=== PATIENT | male | born 1965 | race African-American/Black ===

== ENCOUNTER → 2016-04-23 | Outpatient (CLI) | payer OTHER ==
[~2016-04-23] VITALS: Ht 170.2 cm; Wt 64.9 kg
[~2016-04-23] MED LIST: GABA-279 PO; LIDOCAINE 2% INJ 100 MG/5 ML SDV (FOR ANES.) As Ordered ONE; MELO15TA4 PO; MULT1TAB10 PO; PROPOFOL 200 MG/20 ML VIAL As Ordered ONE
--- NOTE | 2016-04-23 12:55 | ROOR ---
Patient Name: Hernan Green Procedure Date: 04/23/2016 12:38 PM Date of : 1965 Age: 50 Room: [facility] Gender: Male Note Status: Finalized Procedure: Colonoscopy Indications: Screening for colorectal malignant neoplasm Providers: Harinder CASTANEDA MD Referring MD: CLAIR Benoit DO Requesting Provider: Medicines: Monitored Anesthesia Care Complications: No immediate complications. Procedure: Pre-Anesthesia Assessment: - The heart rate, respiratory rate, oxygen saturations, blood pressure, adequacy of pulmonary ventilation, and response to care were monitored throughout the procedure. The Colonoscope was introduced through the anus and advanced to the cecum, identified by appendiceal orifice and ileocecal valve. The colonoscopy was performed without difficulty. The patient tolerated the procedure well. The quality of the bowel preparation was good. Findings: The perianal and digital rectal examinations were normal. (Exam: Complete, Prep: Good or Excellent.) A few medium-mouthed diverticula were found in the sigmoid colon. The entire examined colon appeared normal on direct and retroflexion views. Impression: - (Exam: Complete, Prep: Good or Excellent.) - Mild diverticulosis in the sigmoid colon. - The entire examined colon is normal on direct and retroflexion views. - No specimens collected. Recommendation: - Repeat colonoscopy in 10 years for screening purposes. Harinder Castaneda MD Harinder CASTANEDA MD 04/23/2016 12:54:51 PM This report has been signed electronically. Number of Addenda: 0 Note Initiated On: 04/23/2016 12:38 PM Estimated Blood Loss: Estimated blood loss: none.
[2016-04-23 12:56] VITALS: BP 114/78
== END | disposition home or self-care (01) ==
LOC: M OPP 11:15
PROVIDERS: ATTEND Internal Medicine Gastroenterology
DX: Z12.11 Encounter for screening for malignant neoplasm of colon (principal); K57.30 Diverticulosis of large intestine without perforation or abscess without bleeding; G89.4 Chronic pain syndrome; M54.9 Dorsalgia, unspecified; M51.26 Other intervertebral disc displacement, lumbar region; F17.200 Nicotine dependence, unspecified, uncomplicated; F17.228 Nicotine dependence, chewing tobacco, with other nicotine-induced disorders; Z79.899 Other long term (current) drug therapy

== ENCOUNTER 2016-07-24 14:14 | Outpatient (RCR) | payer OTHER ==
[~2016-07-24 14:14] MED LIST changes: -LIDOCAINE 2% INJ 100 MG/5 ML SDV (FOR ANES.) As Ordered ONE; -PROPOFOL 200 MG/20 ML VIAL As Ordered ONE
== END 2016-07-28 ==
LOC: M PT 14:14
PROVIDERS: ATTEND Physician Assistant
DX: M51.36 Other intervertebral disc degeneration, lumbar region (principal); M48.06 Spinal stenosis, lumbar region

== ENCOUNTER → 2016-09-12 | Outpatient (REF) ==
--- NOTE | 2016-09-13 00:51 | REP ---
Clinical: Pain and disability. Technique: AP, lateral, bilateral oblique and sunrise views of the right knee. Findings: Mild age-related degenerative changes include increased sclerosis to the tibial plateau with minimal joint space narrowing suggested. [place] view demonstrates fraying and increase sclerosis along the anterior patellar margin. No further degenerative changes are appreciated. No acute fracture or dislocation. No effusion. Impression: Mild age-related degenerative changes. Signed by Santi Molina MD 09/13/2016 12:43 A
--- NOTE | 2016-09-13 00:54 | REP ---
Clinical: Pain and disability. Technique: AP, lateral, cone down views of the lumbosacral spine. Findings: Advanced degenerative disc osteophyte complex noted at the L4-5 and L5-S1 levels and to a lesser extent the L3-4 level. Findings include endplate sclerosis/heterogeneity, osteophytosis, and hypertrophic facet changes along with disc space narrowing. Remainder examination demonstrates mild to moderate degenerative changes. No acute fracture / compression injury or subluxation. Alignment and lordosis of fluid maintained. Impression: Multilevel degenerative disc osteophyte complexes primarily involving the L3-4 through L5-S1 levels. Signed by Santi Molina MD 09/13/2016 12:45 A
== END ==
LOC: M SMT 08:02
PROVIDERS: ATTEND Internal Medicine
DX: M51.36 Other intervertebral disc degeneration, lumbar region (principal)

== ENCOUNTER → 2017-02-10 | Outpatient (REF) | payer OTHER, MEDICAID ==
[2017-02-10 14:06] LABS: MEAN CORPUSCULAR HEMOGLOBIN 28.8 pg (27.0-33.0); MEAN CORPUSCULAR VOLUME 87.1 fl (80.0-96.0); PLATELET COUNT, AUTOMATED 152 10^3/uL (150-450); RED CELL DISTRIBUTION WIDTH 15.9 % (11.5-14.5); WHITE BLOOD COUNT 6.6 10^3/uL (4.0-10.0)
[2017-02-10 14:19] LABS: ALBUMIN 3.6 GM/DL (3.2-5.2); ALBUMIN/GLOBULIN RATIO 0.84 (1.00-1.93); ALKALINE PHOSPHATASE 87 U/L (45-117); ALT/SGPT 50 U/L (12-78); ANION GAP 6 MEQ/L (8-16); AST/SGOT 63 U/L (7-37); BILIRUBIN,TOTAL 1.3 MG/DL (0.2-1.0); BLOOD UREA NITROGEN 16 MG/DL (7-18); CALCIUM LEVEL 9.1 MG/DL (8.5-10.1); CARBON DIOXIDE LEVEL 28 MEQ/L (21-32); CHLORIDE LEVEL 105 MEQ/L (98-107); CHOLESTEROL LEVEL 216 MG/DL (<200); CREATININE FOR GFR 1.13 MG/DL (0.70-1.30); GLOMERULAR FILTRATION RATE > 60.0 (>56); GLUCOSE, FASTING 146 MG/DL (70-105); POTASSIUM SERUM 3.9 MEQ/L (3.5-5.1); SODIUM LEVEL 139 MEQ/L (136-145); TOTAL PROTEIN 7.9 GM/DL (6.4-8.2); TRIGLYCERIDES LEVEL 85 MG/DL (<150)
== END ==
LOC: M LAB REF 13:13
PROVIDERS: ATTEND Nurse Practitioner Family
DX: I10 Essential (primary) hypertension (principal); R74.0 Nonspecific elevation of levels of transaminase and lactic acid dehydrogenase [LDH]

== ENCOUNTER → 2017-03-26 | Outpatient (CLI) | payer OTHER ==
--- NOTE | 2017-03-26 16:23 | REP ---
MRI LUMBAR SPINE WITHOUT CONTRAST: HISTORY: Spinal stenosis. COMPARISON: 02/19/2016 Decreased signal intensity on T2-weighted images is present in the L2-3 through L5-S1 intervertebral discs. The discs are decreased in height. These findings are consistent with disc degeneration. A diffuse disc bulge is present at the L1-2 level. There is minimal compression of the thecal sac. The L1 nerves exit the neural foramina without compression. A diffuse disc bulge and small right paracentral disc extrusion are present at the L2-3 level. There is hypertrophy of the ligamenta flava and posterior articulating facets. These findings produce moderate central canal stenosis. The L2 nerves exit the neural foramina without compression. A diffuse disc bulge and large disc extrusion central and eccentric to the right are present at the L3-4 level. There is superior migration of disc material. There is hypertrophy of the ligamenta flava and posterior articulating facets. These findings produce moderate central canal stenosis. The L3 nerves exit the neural foramina without compression. A diffuse disc bulge with associated osteophyte formation is present at the L4-5 level. There is minimal compression of the thecal sac. There is hypertrophy of the posterior articulating facets. There is compression of the left L4 nerve and the neural foramen. The right L4 nerve exits the neural foramen without compression. A diffuse disc bulge and small central disc protrusion are present at the L5-S1 level. The disc protrusion abuts the S1 nerves. There is no thecal sac compression. There is hypertrophy of the posterior articulating facets. The L5 nerves exit the neural foramina without compression. There is partial sacralization of the L5 vertebral body. The conus medullaris is normal in appearance terminating at the level of the T12-L1 intervertebral disc. Increased signal intensity on T2-weighted images is present in the endplates of the L4 and L5 vertebral bodies. This represents degenerative change. IMPRESSION: 1. Diffuse disc bulge at he L1-2 level with minimal thecal sac compression. 2. Moderate central canal stenosis at the L2-3 level secondary to disc bulge, disc extrusion, ligamentous and facet hypertrophy. 3. Moderate central canal stenosis at the L3-4 level secondary to disc bulge, disc extrusion, ligamentous and facet hypertrophy. The disc extrusion is a new finding. 4. Diffuse disc bulge with associated osteophyte formation at the L4-5 level with minimal thecal sac compression. There is compression of the left L4 nerve in the neural foramen. 5. Diffuse disc bulge and small central disc protrusion at the L5-S1 level. The disc protrusion abuts the S1 nerves. There is no other significant change. Signed by Rosalino Reynoso MD 03/26/2017 04:37 P
== END ==
LOC: M RAD 13:48
PROVIDERS: ATTEND Physician Assistant
DX: M48.061 Spinal stenosis, lumbar region without neurogenic claudication (principal); M51.27 Other intervertebral disc displacement, lumbosacral region

== ENCOUNTER 2018-03-29 20:54 | Emergency (ER) | payer OTHER ==
[~2018-03-29 20:54] MED LIST changes: +GABA-1171 PO; -GABA-279 PO; +MELO15TA28 PO; -MELO15TA4 PO
[2018-03-29] MEDS ORDERED: TOPR50TA23 PO (21:07)
[2018-03-29 21:21] VITALS: BP 104/56
[2018-03-29] MEDS ORDERED: DERMABOND TOPICAL SKIN ADHESIVE TOP ONE (22:00)
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
== END 2018-03-29 22:25 | disposition home or self-care (01) ==
LOC: M ED 20:54 → EDBD 20:54 → M ED 22:25
DX: S01.311A Laceration without foreign body of right ear, initial encounter (principal); Y04.8XXA Assault by other bodily force, initial encounter; Y92.89 Other specified places as the place of occurrence of the external cause; I10 Essential (primary) hypertension; Z91.013 Allergy to seafood; F17.200 Nicotine dependence, unspecified, uncomplicated; Z72.89 Other problems related to lifestyle